=== PATIENT | female | born 1970 | race American Indian/Alaskan Native ===

== ENCOUNTER 2017-03-30 16:30 | Emergency (ER) | payer MEDICAID ==
[2017-03-30 17:33] VITALS: BP 138/88
[2017-03-30] MEDS ORDERED: DECADRON IM ONE (20:27)
--- NOTE | 2017-03-30 20:46 | Emergency Department Report ---
ED General Adult HPI - General Chief complaint: Allergic Reaction Stated complaint: BEE STING/SWOLLEN/ITCHING LEFT HAND Time Seen by Provider: 03/30/17 20:22 Source: patient Mode of arrival: Ambulatory Limitations: No Limitations - History of Present Illness Initial comments: Patient comes into the ER today with complaints of left hand swelling, itching after being stung by something that was in her hair 2 days ago. Patient states that she was trying to falling away whatever was in her head and got stung in her left hand. Patient believes that the sting was in her left third posterior proximal finger. She states that the swelling was a lot worse yesterday and is continued to be swollen right knee and itchy. Patient denies any shortness of breath, throat closing, tongue swelling. Patient has not taken anything over- the-counter other than putting some ice on the area. Patient states that she has never reacted like this before but she does not believe she has ever been stung before either. -: days(s) (2) - Related Data Allergies Allergy/AdvReac Type Severity Reaction Status Date / Time No Known Allergies Allergy Unverified 03/30/17 17:29 ED Review of Systems ROS: Stated complaint: BEE STING/SWOLLEN/ITCHING LEFT HAND Other details as noted in HPI Constitutional: denies: chills, fever Eyes: denies: eye pain, eye discharge, vision change ENT: denies: ear pain, throat pain Respiratory: denies: cough, shortness of breath, wheezing Cardiovascular: denies: chest pain, palpitations Endocrine: no symptoms reported Gastrointestinal: denies: abdominal pain, nausea, diarrhea Genitourinary: denies: urgency, dysuria, discharge Musculoskeletal: joint swelling. denies: back pain, arthralgia Skin: denies: rash, lesions Neurological: denies: headache, weakness, numbness, paresthesias Psychiatric: denies: anxiety, depression Hematological/Lymphatic: denies: easy bleeding, easy bruising ED Past Medical Hx - Past Medical History Previous Medical History?: Yes Hx Hypertension: Yes Additional medical history: DEAF - Surgical History Past Surgical History?: No - Social History Smoking Status: Never Smoker Substance Use Type: Alcohol ED Physical Exam - General Limitations: No Limitations General appearance: alert, in no apparent distress - Head Head exam: Present: atraumatic, normocephalic - Eye Eye exam: Present: normal appearance. Absent: periorbital swelling - ENT ENT exam: Present: normal exam, normal orophraynx, mucous membranes moist - Neck Neck exam: Present: normal inspection. Absent: lymphadenopathy - Respiratory Respiratory exam: Present: normal lung sounds bilaterally. Absent: respiratory distress, wheezes, rales, rhonchi, accessory muscle use, decreased breath sounds - Cardiovascular Cardiovascular Exam: Present: regular rate, normal rhythm, normal heart sounds. Absent: systolic murmur, diastolic murmur, rubs, gallop - GI/Abdominal GI/Abdominal exam: Present: soft, normal bowel sounds - Extremities Exam Extremities exam: Present: full ROM, normal capillary refill, joint swelling ( left posterior hand swelling in area of second, third, fourth MCP joints extending into the third proximal phalanx.). Absent: tenderness - Back Exam Back exam: Present: normal inspection - Neurological Exam Neurological exam: Present: alert, oriented X3, CN II-XII intact. Absent: motor sensory deficit - Psychiatric Psychiatric exam: Present: normal affect, normal mood - Skin Skin exam: Present: warm, dry, intact, erythema (left posterior hand in area of second, third, fourth MCP joints), urticaria. Absent: rash ED Course Vital Signs 03/30/17 17:29 Temperature 98.5 F Pulse Rate 68 Respiratory 18 Rate Blood Pressure 138/88 O2 Sat by Pulse 100 Oximetry ED Medical Decision Making - Medical Decision Making Patient is nontoxic and hemodynamically stable. Patient does not appear to be having any anaphylactic reaction to her insect sting. Patient does have exam consistent with local reaction. Patient is 2 days out of insect sting and is already seen some improvement in symptoms.. Patient was given Decadron 10 mg IM here in the ER to ensure resolution of her symptoms. Patient is to follow- up with her primary care doctor to ensure resolution of her reaction. Patient is in agreement with treatment plan and patient is stable for discharge. Critical care attestation.: If time is entered above; I have spent that time in minutes in the direct care of this critically ill patient, excluding procedure time. ED Disposition Clinical Impression: Local reaction to insect sting Disposition: DC-01 TO HOME OR SELFCARE Is pt being admited?: No Does the pt Need Aspirin: No Condition: Good Instructions: Insect Bite or Sting (ED), Urticaria (ED) Referrals: PRIMARY CARE, [Primary Care Provider] - 3-5 Days Time of Disposition: 20:47
== END 2017-03-30 20:56 | disposition home or self-care (01) ==
LOC: EDSEX → ED 16:30
DX: T63.481A Toxic effect of venom of other arthropod, accidental (unintentional), initial encounter (principal); I10 Essential (primary) hypertension; Y92.89 Other specified places as the place of occurrence of the external cause
CPT/HCPCS: 96372; 99282; J1100

== ENCOUNTER 2017-08-03 08:19 | Emergency (ER) | payer MEDICAID ==
[2017-08-03 08:26] VITALS: BP 120/67
--- NOTE | 2017-08-03 11:49 | Emergency Department Report ---
Upper Extremity - [facility] Chief Complaint: Extremity Injury, Upper Stated Complaint: LEFT HAND HURT Time Seen by Provider: 08/03/17 10:52 ED Review of Systems ROS: Stated complaint: LEFT HAND HURT Other details as noted in HPI ED Past Medical Hx - Past Medical History Hx Hypertension: Yes Additional medical history: DEAF - Social History Smoking Status: Never Smoker Substance Use Type: None Upper Extremity Exam - Exam General: Vital signs noted. No distress. Alert and acting appropriately. ED Course Vital Signs 08/03/17 08:22 Temperature 98 F Pulse Rate 82 Respiratory 18 Rate Blood Pressure 120/67 O2 Sat by Pulse 100 Oximetry Critical care attestation.: If time is entered above; I have spent that time in minutes in the direct care of this critically ill patient, excluding procedure time. ED Disposition Condition: Stable Referrals: PRIMARY CARE [Primary Care Provider] - 3-5 Days
== END 2017-08-03 11:54 ==
LOC: ED 08:19
DX: Z53.21 Procedure and treatment not carried out due to patient leaving prior to being seen by health care provider (principal)